=== PATIENT | female | born 1960 | race Caucasian/White ===

== ENCOUNTER 2019-12-31 10:22 | Outpatient (REF) | payer OTHER, SELFPAY | END 2019-12-31 10:23 | disposition home or self-care (01) | LOC: HO.LAB 10:22 | PROVIDERS: Visit Provider Nurse Practitioner Family | DX: Z20.828 Contact with and (suspected) exposure to other viral communicable diseases (principal) | CPT/HCPCS: U0003 ==

== ENCOUNTER 2021-01-12 15:57 | Outpatient (REF) | payer OTHER, SELFPAY ==
[2021-01-12 16:24] LABS: COVID-19 Test Negative (Negative)
== END 2021-01-12 15:58 | disposition home or self-care (01) ==
LOC: HO.LAB 15:57
PROVIDERS: Nurse Practitioner Family; PCP Internal Medicine; Visit Provider Internal Medicine
DX: Z20.822 Contact with and (suspected) exposure to COVID-19 (principal)
CPT/HCPCS: 36415; 87635

== ENCOUNTER 2023-01-06 08:36 | Outpatient (AMB) | payer OTHER, SELFPAY ==
[2023-01-06 09:05] VITALS: BP 122/80; PULSE 78; TEMP 36.6; O2SAT 99; BMI 26.7
--- NOTE | 2023-01-06 09:05 | AM.OFFWIN_ITS ---
Intake Vital Signs 01/06/23 09:05 Height 5 ft 2 in Weight 146 lb BMI 26.7 BP 122/80 Blood Pressure Location Rt brachial Position Sitting Pulse 78 Pulse Source Pulse Oximeter Temp 97.8 F Temp Source Temporal Artery Scan Pulse Oximetry (%) 99 Oxygen Delivery Method Room Air Intake Visit Reasons: EP Left Ear blocked 2 days Intake Note: pt is here for c/o ear blockage for 2x days Patient Tobacco Use Status: Never used Tobacco Allergies ampicillin Allergy (Unknown, Verified 01/06/23 14:45) HIVES-FACIAL RASH Medication List - Last Reconciled 01/06/23 by Tacos Polanco MD carbamide peroxide 6.5% (Debrox) 5 drps otic (ear) left DAILY 4 days levothyroxine 50 mcg PO DAILY rosuvastatin 5 mg PO DAILY Do you need a note to return to daycare/school/sports/work: Yes HPI EP Left Ear blocked 2 days HPI Details 62-year-old female presents to the [facility] for a sick visit. Patient is unable to hear from the left ear. It has been blocked for a few days. Also reports symptoms of congestion and a mild headache. [facility] Social History Patient Tobacco Use Status: Never used Tobacco Physical Exam Vital Signs: Last Vital Signs Temp 97.8 F 01/06/23 09:05 Pulse 78 01/06/23 09:05 BP 122/80 01/06/23 09:05 Pulse Ox 99 01/06/23 09:05 Oxygen Delivery Method Room Air 01/06/23 09:05 BMI result Body Mass Index 26.7 HEENT Other: Left ear: Wax present. Unable to visualize the tympanic membrane. Office Procedures Cerumen Removal From which ear canal was the cerumen removed: bilateral Removal: otoscope w/curette Notes: patient tolerated procedure well 84882-Hhh Wax Removal by Spoon/Curette Assessment & Plan Assessment & Plan (1) Cerumen impaction: Code(s): H61.20 - Impacted cerumen, unspecified ear Plan Patient tolerated procedure well. However all the wax could not be removed. Patient was not able to tolerate the manual extraction of the wax. Debrox has been prescribed. Advised the patient to use it a for a few days and return for a irrigation. Orders: Orders AMB Cerumen Removal Today H61.23 - Impacted cerumen, bilateral Medications: New carbamide peroxide 6.5% (Debrox) 5 drps otic (ear) left DAILY 15 mL 0RF 4 days Coding Level of Care Code Est Pt Level 3 (48544) Diagnoses Cerumen impaction H61.20 CPT Codes Office Procedure - CPT: 59560-Skt Wax Removal by Spoon/Curette ([id number])
== END 2023-01-06 10:00 | disposition home or self-care (01) ==
PROVIDERS: PCP Internal Medicine; Visit Provider Internal Medicine
DX: H61.23 Impacted cerumen, bilateral (principal)
CPT/HCPCS: 69210; 99213